=== PATIENT | male | born 1965 | race Hispanic/Latino ===

== ENCOUNTER 2021-05-31 10:44 | Day surgery (SDC) | payer BC ==
[~2021-05-31] VITALS: Ht 188 cm; Wt 126.1 kg
[2021-05-31] VITALS (8 sets, daily range): BP systolic 137–156; BP diastolic 53–99
[~2021-05-31 10:44] MED LIST: LISI10TA24 PO; MULT-1367 PO; ONDA4TAB4 PO
[2021-05-31] MEDS ORDERED: 0.9%NACL 1000ML 1,000 ML IV ONE (10:56)
[2021-05-31] MEDS ORDERED: IOHEXOL-350 50ML VIAL IV ONE (11:10)
[2021-05-31] MEDS ORDERED: ENOX120D SQ (11:13)
[2021-05-31] MEDS ORDERED: SUCCINYLCHOLINE 200MG/10ML SYR ONE (12:11)
[2021-05-31] MEDS ORDERED: FENTANYL CITRATE PF 50 MCG/1 ML 2ML VIAL ONE (12:11)
[2021-05-31] MEDS ORDERED: LIDOCAINE PF 100MG/5ML (2%) SYRINGE 5ML ONE (12:11)
[2021-05-31] MEDS ORDERED: PROPOFOL 10 MG/ML 20ML VIAL IV ONE (12:11)
[2021-05-31] MEDS ORDERED: MIDAZOLAM HCL 1 MG/ML 2ML VIAL ONE (12:11)
== END 2021-05-31 13:10 | disposition home or self-care (01) ==
LOC: DAH 10:44 → ENDO 10:44
PROVIDERS: ATTEND Internal Medicine Gastroenterology
DX: C25.9 Malignant neoplasm of pancreas, unspecified (principal); R74.8 Abnormal levels of other serum enzymes; B96.81 Helicobacter pylori [H. pylori] as the cause of diseases classified elsewhere; K76.9 Liver disease, unspecified; K22.70 Barrett's esophagus without dysplasia; R94.5 Abnormal results of liver function studies; D12.6 Benign neoplasm of colon, unspecified; E66.9 Obesity, unspecified; I10 Essential (primary) hypertension; E78.5 Hyperlipidemia, unspecified; M19.90 Unspecified osteoarthritis, unspecified site; Z20.822 Contact with and (suspected) exposure to COVID-19
CPT/HCPCS: 43264; 43274; 74330; 87635; A4215 ×2; A4221; A4222; A4223; A4606; A4657; A4663; C1769; C1773; C1876; C9803; J0330; J2001; J2250; J2704; J3010; J7030; Q9967; 74328

== ENCOUNTER 2021-07-07 15:33 | Emergency (ER) | payer BC ==
[~2021-07-07] VITALS: Ht 188 cm; Wt 125.2 kg
[~2021-07-07 15:33] MED LIST changes: +ENOX120D SQ
[2021-07-07] MEDS ORDERED: ONDANSETRON 4MG INJ IVP ONE (16:30)
[2021-07-07] MEDS ORDERED: MORPHINE 2 MG SYG IVP ONE (16:30)
[2021-07-07 16:31] LABS: BASOPHILS % (AUTO) 0.4 % (0.0-5.0); EOSINOPHILS % (AUTO) 1.2 % (0.0-8.0); HEMATOCRIT 33.7 % (42-54); LYMPHOCYTES % (AUTO) 25.1 % (21.0-51.0); MEAN CORPUSCULAR HEMOGLOBIN 33.8 pg (27.0-33.0); MEAN CORPUSCULAR HGB CONC 34.1 g/dL (32.0-36.0); MEAN CORPUSCULAR VOLUME 99.1 fL (79-99); NEUTROPHILS % (AUTO) 47.9 % (40.0-77.0); PLATELET COUNT (AUTO) 243 K/uL (130-400); RED CELL DISTRIBUTION WIDTH 15.1 % (11.0-15.5)
[2021-07-07 16:49] LABS: CARBON DIOXIDE 26 mmol/L (21-32); CHLORIDE 100 mmol/L (101-111); GLOMERULAR FILTR. RATE CALC 82 mL/min (>60); GLUCOSE,RANDOM 99 mg/dL (70-105); POTASSIUM 3.8 mmol/L (3.5-5.1); SODIUM SERUM 134 mmol/L (136-145); UREA NITROGEN, BLOOD 11 mg/dL (7-18)
[2021-07-07 16:53] LABS: ALANINE AMINOTRANSFERASE 35 U/L (12-78); ALBUMIN 3.3 g/dL (3.5-5.0); AMMONIA 11 umol/L (11-32); ASPARTATE AMINOTRANSFERASE 25 U/L (10-37); BILIRUBIN,TOTAL 1.2 mg/dL (0.2-1.0); TOTAL PROTEIN, SERUM 7.4 g/dL (6.0-8.3)
[2021-07-07 17:08] LABS: LIPASE < 50 U/L (114-286)
[2021-07-07 17:16] LABS: B-TYPE NATRIURETIC PEPTIDE 67 pg/mL (0-100)
[2021-07-07 17:44] LABS: APPEARANCE,URINE Clear (CLEAR); BILIRUBIN,URINE Small (NEGATIVE); COLOR,URINE Dark Yellow (YELLOW); GLUCOSE, URINE (UA) Negative (NEGATIVE); KETONES,URINE Trace mg/dL (NEGATIVE); LEUKOCYTE ESTERASE ,URINE Trace (NEGATIVE); NITRATE,URINE Negative (NEGATIVE); OCCULT BLOOD,URINE Negative (NEGATIVE); PH,URINE 5.5 (5.0-8.0); PROTEIN,URINE 300 mg/dL (NEGATIVE)
[2021-07-07 17:57] LABS: BACTERIA,URINE Rare /HPF (None Seen); RBC,URINE 0-1 /HPF (0-1); SQUAMOUS EPITHELIAL CELL,UR Moderate /HPF (0-2)
[2021-07-07] MEDS ORDERED: FENTANYL 75 MCG/HR PATCH TD SCH (18:00)
[2021-07-07] MEDS ORDERED: CEFTRIAXONE 1G VIAL IVP ONE (18:00)
[2021-07-07] MEDS ORDERED: CEFTRIAXONE 1G VIAL ONE (18:10)
[2021-07-07] MEDS ORDERED: FENTANYL 75 MCG/HR PATCH TD ONE (18:11)
[2021-07-07] MEDS ORDERED: 0.9%NACL 50ML 50 ML IV ONE (18:12)
[2021-07-07] MEDS ORDERED: CEPH500B PO (18:14)
[2021-07-07 18:23] VITALS: BP 125/90
== END 2021-07-07 18:45 | disposition home or self-care (01) ==
LOC: EDH 15:33
DX: N39.0 Urinary tract infection, site not specified (principal); C22.0 Liver cell carcinoma; K86.9 Disease of pancreas, unspecified; I10 Essential (primary) hypertension; Z79.01 Long term (current) use of anticoagulants; Z79.899 Other long term (current) drug therapy; Z85.05 Personal history of malignant neoplasm of liver; Z86.711 Personal history of pulmonary embolism
CPT/HCPCS: 36415; 71045; 74176; 80053; 81001; 82140; 83605; 83690; 83880; 84484; 85025; 86140; 87040 ×2; 93005; 96374; 96375; 99284; J0696; J2405

== ENCOUNTER 2021-07-27 22:41 | Emergency (ER) | payer BC ==
[~2021-07-27] VITALS: Ht 188 cm; Wt 117.0 kg
[~2021-07-27 22:41] MED LIST changes: +CEPH500B PO
[2021-07-27] MEDS ORDERED: MORPHINE 4 MG SYG IV ONE (23:30)
[2021-07-27] MEDS ORDERED: KETOROLAC 30MG VIAL (30MG/ML) IV ONE (23:30)
[2021-07-27] MEDS ORDERED: KETOROLAC 30MG VIAL (30MG/ML) ONE (23:41)
[2021-07-27] MEDS ORDERED: MORPHINE 4 MG SYG ONE (23:41)
[2021-07-27 23:45] LABS: BASOPHILS % (AUTO) 0.2 % (0.0-5.0); EOSINOPHILS % (AUTO) 1.1 % (0.0-8.0); LYMPHOCYTES % (AUTO) 14.1 % (21.0-51.0); MEAN CORPUSCULAR HEMOGLOBIN 32.2 pg (27.0-33.0); MEAN CORPUSCULAR HGB CONC 34.1 g/dL (32.0-36.0); MEAN CORPUSCULAR VOLUME 94.7 fL (79-99); MONOCYTES % (AUTO) 7.7 % (3.0-13.0); NEUTROPHILS % (AUTO) 76.5 % (40.0-77.0); PLATELET COUNT (AUTO) 259 K/uL (130-400); RED BLOOD CELL COUNT(AUTO) 3.38 MIL/uL (4.50-6.20); RED CELL DISTRIBUTION WIDTH 13.8 % (11.0-15.5); WHITE BLOOD COUNT (AUTO) 8.1 K/uL (4.8-10.8)
[2021-07-28] MEDS ORDERED: 0.9%NACL 1000ML 1,000 ML IV ONE (00:19)
[2021-07-28 00:29] LABS: CARBON DIOXIDE 24 mmol/L (21-32); CHLORIDE 102 mmol/L (101-111); CREATININE 0.9 mg/dL (0.5-1.5); GLOMERULAR FILTR. RATE CALC 93 mL/min (>60); GLUCOSE,RANDOM 100 mg/dL (70-105); POTASSIUM 4.3 mmol/L (3.5-5.1); SODIUM SERUM 135 mmol/L (136-145); UREA NITROGEN, BLOOD 11 mg/dL (7-18)
[2021-07-28 00:33] LABS: ALANINE AMINOTRANSFERASE 34 U/L (12-78); ASPARTATE AMINOTRANSFERASE 35 U/L (10-37); BILIRUBIN,TOTAL 0.7 mg/dL (0.2-1.0); TOTAL PROTEIN, SERUM 7.4 g/dL (6.0-8.3)
[2021-07-28 00:39] LABS: LIPASE < 50 U/L (114-286)
[2021-07-28] MEDS ORDERED: FENTANYL 100 MCG/HR PATCH TD ONE (00:51)
[2021-07-28] MEDS: FENTANYL 100 MCG/HR PATCH TD SCH ×2 (01:00→01:16)
[2021-07-28] MEDS ORDERED: ACET1TAB25 PO (01:03)
[2021-07-28 01:21] VITALS: BP 136/90
== END 2021-07-28 01:25 | disposition home or self-care (01) ==
LOC: EDH 22:41
DX: R10.11 Right upper quadrant pain (principal); C78.7 Secondary malignant neoplasm of liver and intrahepatic bile duct; Z79.01 Long term (current) use of anticoagulants; I10 Essential (primary) hypertension; Z79.899 Other long term (current) drug therapy; Z86.711 Personal history of pulmonary embolism
CPT/HCPCS: 74018; 80053; 83690; 85025; 96374; 96375; 99284; J1885; J2270; J7030